=== PATIENT | female | born 1955 | race Caucasian/White ===

== ENCOUNTER 2024-10-09 06:10 | Emergency (ER) | payer MEDICARE, MEDICAID, SELFPAY ==
--- OUTSIDE RECORDS SUMMARY | 2023-01-02 07:30 | XMS_ITS | Continuity of Care Document ---
Author Organization [facility] Address [address] [place] [address] Phone Care Team Providers Care Neonatal Specialist Name Role Phone Xenia SHERWINSaloni Harris Unavailable Unavailable Allergies, Adverse Reactions, Alerts Substance Reaction Status Criticality teriparatide Active No Information codeine Difficulty breathing Active No Info rmation trimethoprim Skin irritation Active No Informati on sulfamethoxazole Skin irritation Active No Infor mation codeine Anaphylaxis Active No Information Medications Medication Instructions Dosage Effective Dates (start - stop) Status Comments Jardiance 25 mg tablet take 0.5 tablet b y oral route every day in the morning 12.5 MG - Active BromSite 0.075 % eye drops instill 1 drop by ophthalmic route 2 times every day into affected eye(s) ; start 1 day before cataract surgery; use for 14 days after surgery 1.00 drop - Active prednisolone acetate 1 % eye drops,suspension instill 1 drop by ophthalmic route 2 times every day into affected eye(s) 1.00 drop - Active Lubricant Eye Drops 0.5 % - Active Refresh Tears 0.5 % eye drops - Active zinc 50 mg tablet - Active clopidogrel bisulfate (bulk) 100 % powder - Active amlodipine 2.5 mg tablet take 1 tablet by oral route every day 2.5 MG - Active B12 5,000 mcg-100 mcg sublingual lozenge - Active Vitamin D2 50,000 unit capsule take 1 capsule by oral route every week - Active biotin 5 mg capsule - Active methocarbamol 500 mg tablet take 2 tablet by oral route 4 times every day 1000 MG - Active omeprazole 20 mg capsule,delayed release - Active metformin 500 mg tablet BID - Active aspirin 81 mg chewable tablet chew 1 tablet (81MG) by oral route every day 81 MG - Active Procedures Procedure Date Resin Composite 2s; Posterior 3 Oral Hygiene Instruction Resin Two Surfaces Anterior Resin Three Surfaces Anterior 3 Periodic Oral Eval Estab Patient 2022 Prophylaxis Adult Nutrit Couns For Control Of Freeborn Dis Nov Oral Hygiene Instruction Bitewings Four Films Qimitzsum-[id number] Additional Oct Oral Hygiene Instruction Limited Oral Eval Prophylaxis Adult Oral Hygiene Instruction Oral Hygiene Instruction Resin 4+ W/incis Angle Anterior 021 Resin One Surface; Anterior Bitewings Four Films Prophylaxis Adult Oral Hygiene Instruction Periodic Oral Eval Estab Patient 2020 PPE Bitewings-two Films Panoramic Film Prophylaxis Adult Periodic Oral Eval Estab Patient 2019 Oral Hygiene Instruction Prophylaxis Adult Oral Hygiene Instruction Nutrit Couns For Control Of Freeborn Dis Apr Oral Hygiene Instruction Resin Composite 1s; Posterior 9 Bitewings Four Films Prophylaxis Adult Periodic Oral Eval Estab Patient 2018 Topical Kathrin Of [place] 019 Oral Hygiene Instruction Nutrit Couns For Control Of Freeborn Dis Dec Oral Hygiene Instruction Resin 4+ W/incis Angle Anterior 018 Oral Hygiene Instruction Resin One Surface; Anterior Prophylaxis Adult Oral Hygiene Instruction Oral Hygiene Instruction Oral Hygiene Instruction Intraoral-periapical 1st Film 8 [id number] Additional Jul Resin Two Surfaces Anterior Resin Three Surfaces Anterior 8 Oral Hygiene Instruction Prophylaxis Adult Bitewings Four Films Periodic Oral Eval Estab Patient 2017 Post Op Visit Dental Extract; Erupted Th/exposted Rt 017 Limited Oral Eval No Charge Resin Composite 2s; Posterior 6 Resin 4+ W/incis Angle Anterior 016 Bitewings Four Films Periodic Oral Eval Estab Patient 2015 Prophylaxis Adult Oral Hygiene Instruction Prophylaxis Adult Oral Hygiene Instruction Amalgam 2 Surf Prim/perm Resin Composite 1s; Posterior 5 Resin 4+ W/incis Angle Anterior 015 Resin Two Surfaces Anterior Prophylaxis Adult Oral Hygiene Instruction Bitewings Four Films Prophylaxis Adult Oral Hygiene Instruction OFFICE/OUTPATIENT VISIT, EST Comp Oral Eval New/estab Patient 2012 ASSAY OF LEAD NEW OFFICE VISIT LEVEL 3 Advance Directives Directive Yes / No Effective Date File Name No Information Encounters Encounter Description Practice Location Reason(s) For Visit Diagnoses Date Provider Providers Copied on Encounter [facility], [address] [place] [address], [id number] , tel:[phone] Dental Clinic ovidio (chief complaint) Encounter for screening for dental disorders 3 Augustne COURTNEYS Saloni. . tel:[phone] [phone], [id number] , tel:[phone] Dental Clinic fill (chief complaint) Encounter for screening for dental disorders 3 Xenia DDS Saloni. . tel:[phone], [id number] , [place] tel: [phone] Dental Clinic PA (chief complaint) Encounter for screening for dental disorders 3 Xenia Christensen. [address], [place], [id number], [place]. tel:[phone] [facility], [address] [place], [place], [id number] , [place] tel: [phone] Dental Clinic Encounter for screening for dental disorders 3 Darien Saez. [address] [place], [address], [place]. tel:[phone] [facility], [address] [place] [address], [id number] , [place] tel: [phone] Dental Clinic prophy (chief complaint) Encounter for screening for dental disorders 2 David Hancock. [address] [place], [address], [place]. tel:[phone] [place] [address], [address] [place] [address], [id number] , [place] tel: [phone] Dental Clinic filling (chief complaint) Encounter for screening for dental disorders 1 David Hancock. [address] [place], [address], [place]. tel:[phone] [place] [address], [address] [place] [address], [id number] , [place] tel: [phone] Dental Clinic prophy (chief complaint) Encounter for screening for dental disorders 1 David Hancock. [address] [place], [address], [place]. tel:[phone] [facility], [address] [place], [place], [id number] , [place] tel: [phone] Dental Clinic Encounter for screening for dental disorders 0 Marta Contreras. [address] [place], [place], [id number], [place]. tel:[phone] [facility], [address] [place], [place], [id number] , [place] tel: [phone] Dental Clinic Encounter for screening for dental disorders 9 [facility]. [address] [place], [place], [id number], [place]. tel:[phone] [facility], [address] [place], [place], [address] , [place] tel: [phone] Dental Clinic filling (chief complaint) Encounter for screening for dental disorders 9 [facility]. [address] [place], [place], [id number], [place]. tel:[phone] [facility], [address] [place], [place], [id number] , [place] tel: [phone] Dental Clinic Encounter for screening for dental disorders 3 9 [facility]. [address] [place], [place], [id number], [place]. tel:[phone] [facility], [address] [place] [address], [id number] , [place] tel: [phone] Dental Clinic filling (chief complaint) Encounter for screening for dental disorders 8 Ryan queen DMD Violetahaen. [address] [place], [address], [place]. tel:[phone] [facility], [address] [place], [place], [id number] , [place] tel:[phone] Dental Clinic Encounter for screening for dental disorders 8 Ryan queen DMD Sushaen. [address] [place], [address], [place]. tel:[phone] [facility], [address] [place] [address], [id number] , [place] tel:[phone] Dental Clinic prophy (chief complaint) Encounter for screening for dental disorders 8 Nevaeh mann. [address] [place], [address], [place]. tel:[phone] [facility], [address] [place], [place], [id number] , [place] tel: [phone] Dental Clinic Encounter for screening for dental disorders 8 Faridagiovanimario bret DANG Violetaleo. [address] [place], [address], [place]. tel:[phone] [facility], [address] [place], [place], [id number] , [place] tel: [phone] Dental Clinic filling (chief complaint) Encounter for screening for dental disorders 8 Geraldo Munguia. [address], [place], [id number], [place]. tel:[phone] [facility], [address] [place], [place], [id number] , [place] tel: [phone] Dental Clinic Prophy (chief complaint) Encounter for screening for dental disorders 8 Bradlycastillo Munguia. [address], [place], [id number], [place]. tel:[phone] [facility], [address] [place], [place], [id number] , [place] tel: [phone] Dental Clinic dental limited (chief complaint) Encounter for screening for dental disorders 7 Ryland DANG Jinbo. [address] [place], [address], [place]. tel:[phone] [facility], [address] [place], [place], [id number] , [place] tel: [phone] Dental Clinic Encounter for screening for dental disorders 7 Neil Ford. [address] [place], [place], [id number], [place]. tel:[phone] [facility], [address] [place] [address], [id number] , [place] tel: [phone] Dental Clinic Encounter for screening for dental disorders 7 Ryland DANG Jinbo. [address] [place] [address], [address], [place]. tel:[phone] [facility], [address] [facility] [place] [place] [id number] , [place] tel: [phone] Dental Clinic EXT (chief complaint) Encounter for screening for dental disorders 6 [facility]. [address] [facility], [id number], [place]. tel:[phone] [facility], [address] [facility], [id number] , [place] tel: [phone] Dental Clinic Encounter for screening for dental disorders 6 [facility]. [address] [facility], [id number], [place]. tel:[phone] [facility], [address] [facility], [id number] , [place] tel: [phone] Dental Clinic Adult Prophy (chief complaint) Encounter for screening for dental disorders [facility]. [address] [facility] [place], [id number], [place]. tel:[phone] [facility], [address] [facility] [place], [id number] , [place] tel: [phone] Dental Clinic Dental examination [facility]. [address] [facility] [id number], [place]. tel:[phone] [facility], [address] [facility] [place], [address] , [place] tel: [phone] Dental Clinic Dental examination 0 5 [facility]. [address] [facility] [place], [id number], [place]. tel:[phone] [facility], [address] [facility] [place], [address] , [place] tel:[phone] Dental Clinic Dental examination 0 5 [facility]. [address] [facility], [id number], [place]. tel:[phone] [facility], [address] [place], [place], [address] , [place] tel: [phone] Dental Clinic Dental examination [facility]. [address] [facility] [place], [id number], [place]. tel:[phone] [facility], [address] [place], [place], [id number] , [place] tel: [phone] Dental Clinic Dental examination [facility]. [address] [place], [place], [id number], [place]. tel:[phone] [facility], [address] [place] [address], [id number] , [place] tel: [phone] Dental Clinic Dental examination [facility]. [address] [place], [place], [id number], [place]. tel:[phone] [facility], [address] [place] [address], [id number] , [place] tel: [phone] [facility] No Information [facility]. [address] [place], [place], [id number], [place]. tel:[phone] OFFICE/OUTPA TIENT VISIT, EST [facility], [address] [place], [place], [id number] , [place] tel: [phone] [facility] hypertension (chief complaint) Unspecified essential hypertension 3 Keshawn Shrestha. [address] [place], [place], [id number], [place]. [facility], [address] [place], [place], [address] , [place] tel: [phone] Dental Clinic Dental examination 3 Geraldo Munguia. [address], [place], [id number], [place]. tel:[phone] [facility], [address] [place] [address], [id number] , [place] tel: [phone] Dental Clinic Dental examination 3 Bradlycastillo Ezra. [address], [place], [id number], [place]. tel:[phone] [facility], [address] [place], [place], [id number] , tel: [phone] [facility] No Information 0 Visci DO Bolivar. [address] [place], [place], [address], [place]. tel:[phone] NEW OFFICE VISIT LEVEL 3 [facility], [address] [place], [place], [address] , [place] tel: [phone] [facility] leg pain (chief complaint)Nee ds ENT consult (chief complaint) Myalgia and myositis, unspecifiedPai n in limbOther malaise and fatigueUnspeci fied hearing loss 0 Adolfo Tatum. [address] [place] [address], [address]. tel:[phone] Family History Family Member Type Diagnosis Age At Onset Problem (finding) Family history of seizu re disorder Mother Problem (finding) diabetes melli tus in first degree relative Problem (finding) Family history of Eczem a Problem (finding) Family history of depre ssion Mother Problem (finding) malignant neoplasm of l olga Problem (finding) Family history of asthm a Problem (finding) Family history of Diabe luis a mellitus Problem (finding) Family history of raise d blood lipids Problem (finding) Family history of Renal disease Problem (finding) Family history of hyper tension Problem (finding) Family history of migra ine Problem (finding) Family history of alzhe hanane's disease Problem (finding) Family history of Heari ng impairment Problem (finding) Family history of osteo arthritis Problem (finding) Family history of Cance r Problem (finding) Family history of Irritable bowel disease Payers Payer name Insurance type Covered republican ID Ivet palmer(s) D [facility] ([place] [employer]) CI [id number] D Medicaid Crossover [id number] Social History Type Description Quantity Date Captured Comments Alcohol Use Details No Caffeine Use Details coffee sips per day Tobacco Use Status Never smoked tobacco 2022 Smoking Status Never smoker Sex Female Sexual Orientation Straight or heterosexual Gender Identity Female Vital Signs Date / Time: Height Weight BMI Pulse Rate Blood Pressure Temperature Respiratory Rate Body Surface Area Head Circumference Head Circ. Percentile Wt./Victor Manuel. Percentile BMI percentile Pulse Ox Inhaled Ox 6:19 PM 82 /min 119/78 mm[Hg] 98.10 F Chief Complaint And Reason For Visit From encounter dated '01/02/2023 11:30'. ovidio (chief complaint). Description: ovidio Reason For Referral Reason For Referral No Information Plan Of Treatment Date Type Action Status Goal FIT-DNA. Due on due Goal Lipid panel. Due on due Goal CT-Colonography. Due on due Goal FOBT. Due on due Goal Depression screening. Due on due Goal Tdap Vaccine. Due on 2022 due Goal PRAPARE ASSESSMENT. Due on N due Goal Hepatitis C screening. Due o n due Goal Colonoscopy. Due on due Goal Influenza vaccine. Due on No due Goal Zoster vaccine (). Due on due Goal Unhealthy drug use screening . Due on due Goal Mammogram. Due on due Goal Tdap. Due on due Goal FIT. Due on due Goal Urinalysis. Due on due Goal ECG. Due on due Goal Diabetes screening. Due on N due Goal Influenza vaccine. Due on Oc due Goal FIT. Due on due Goal Hepatitis C screening. Due o n due Goal Zoster vaccine (1st). Due on due Goal CT-Colonography. Due on due Goal Lipid panel. Due on due Goal Hep A. Due on du e Goal Tdap Vaccine. Due on 2022 due Goal Tdap. Due on due Goal FOBT. Due on due Goal Colonoscopy. Due on due Goal PRAPARE ASSESSMENT. Due on O due Goal Mammogram. Due on due Goal Depression screening. Due on due Goal FIT-DNA. Due on due Goal Unhealthy drug use screening . Due on due Goal Urinalysis. Due on due Goal Diabetes screening. Due on O due Goal ECG. Due on due Goal Hep A. Due on du e Goal PRAPARE ASSESSMENT. Due on O ct due Goal CT-Colonography. Due on due Goal Influenza vaccine. Due on Oc due Goal Tdap Vaccine. Due on 2022 due Goal Unhealthy drug use screening . Due on due Goal Lipid panel. Due on due Goal FIT-DNA. Due on due Goal Tdap. Due on due Goal Colonoscopy. Due on due Goal FIT. Due on due Goal Depression screening. Due on due Goal Hepatitis C screening. Due o n due Goal Mammogram. Due on due Goal Zoster vaccine (). Due on due Goal FOBT. Due on due Goal Diabetes screening. Due on O due Goal ECG. Due on due Goal Urinalysis. Due on due Goal Diabetes screening. Due on S due Goal Urinalysis. Due on due Goal ECG. Due on due Goal Lipid panel. Due on due Goal Influenza vaccine. Due on Se due Goal FOBT. Due on due Goal Depression screening. Due on due Goal PRAPARE ASSESSMENT. Due on S due Goal Tdap Vaccine. Due on 2022 due Goal Colonoscopy. Due on due Goal Zoster vaccine (). Due on due Goal Mammogram. Due on due Goal Tdap. Due on due Goal Diabetes screening. Due on F due Goal ECG. Due on due Goal Urinalysis. Due on due Goal Diabetes screening. Due on O due Goal Urinalysis. Due on due Goal ECG. Due on due Goal Urinalysis. Due on due Goal ECG. Due on due Goal Diabetes screening. Due on A due Goal Urinalysis. Due on due Goal ECG. Due on due Goal Diabetes screening. Due on A due Goal Diabetes screening. Due on D due Goal ECG. Due on due Goal Urinalysis. Due on due Goal Diabetes screening. Due on due Goal ECG. Due on due Goal Urinalysis. Due on due Goal Diabetes screening. Due on due Goal ECG. Due on due Goal Urinalysis. Due on due Goal Diabetes screening. Due on N due Goal ECG. Due on due Goal Urinalysis. Due on 18 due Goal Diabetes screening. Due on S due Goal ECG. Due on due Goal Urinalysis. Due on due Goal Urinalysis. Due on due Goal ECG. Due on due Goal Diabetes screening. Due on S due Goal Urinalysis. Due on due Goal ECG. Due on due Goal Diabetes screening. Due on due Goal ECG. Due on due Goal Urinalysis. Due on due Goal Diabetes screening. Due on A due Goal Urinalysis. Due on due Goal ECG. Due on due Goal Diabetes screening. Due on M due Referral Referred To: Elio Marti DO [id number] [facility] [address] [place], [phone] Ordered: Referral: Elio Matri DO. ENT. Evaluate and treat. ordered History Of Present Illness Encounter Date Complaint History Of Prese nt Illness ovidio ovidio fill PA PA prophy filling filling prophy prophy filling continue with tr eatment filling continue with tr eatment prophy filling Prophy Prophy dental limited EXT Adult Prophy Functional Status Date Functional Assessmen t No Information Instructions Date Instruction Additional Infor mation Order consults Prescribe medications Order labs/studies Go to ER if symptoms persist or worsen Walking program recommended Assessments Type Assessment Date No Information Patient Care Teams Name Effective Dates (start - stop) Status Members No Information
--- OUTSIDE RECORDS SUMMARY | 2023-05-23 10:45 | XMS_ITS ---
Author Organization [facility] Address [address] [place] [address] Care Team Providers Care Post Framer Name Role Phone Gerard Brasher Primary Care Provider [phone] Antonella Ye Unavailable REASON FOR VISIT 3 month f/u Medications Medication SIG (Take, Route, Frequency, Duration) Notes Start Date End Date Status Ferrous Sulfate 325 (65 Fe) MG TAKE 1 TABLET BY MOUTH EVERY DAY; Duration: 30 Ran out of meds Not-Taking Meclizine HCl 25 MG TAKE 1 TABLET NEEDED ORALLY ONCE A DAY; Duration: 30 Active Jardiance 25 MG TAKE 1 TABLET BY MOUTH EVERY DAY FOR 90 DAYS; Duration: 90 Active Omeprazole 40 MG TAKE 1 CAPSULE BY MOUTH EVERY DAY 30 MINUTES BEFORE MORNING MEAL FOR 30 DAYS; Duration: 90 Active amLODIPine Besylate 5 MG 1 tablet Orally Once a day; Duration: 90 days Active Zinc Not-Taking Vitamin C 500 MG as directed Orally Not-Taking Magnesium Citrate 100 MG as directed Orally Not-Taking Folbic RF 1.13-25-2 MG 1 tablet Orally Once a day; Duration: 30 day(s) 11/08/2018 Not-Taking Turmeric /16 in tea every morning Not-Taking Fluticasone Propionate 50 MCG/ACT SPRAY 1 SPRAY IN EACH NOSTRIL ONCE A DAY; Duration: 90 Active Valsartan 40 MG 1 tablet Orally Twice a day; Duration: 90 day(s) Active Famotidine 20 MG TAKE 1 TABLET BY MOUTH NEEDED EVERYDAY AT BEDTIME; Duration: 90 Active metFORMIN HCl 1000 MG TAKE 1 TABLET BY MOUTH WITH A MEAL TWICE A DAY FOR 30 DAYS; Duration: 90 days Active Metoprolol Succinate ER 25 MG TAKE 1 TABLET BY MOUTH EVERY DAY; Duration: 90 Active Chlorthalidone 25 MG TAKE 1 TABLET IN THE MORNING WITH FOOD ORALLY ONCE A DAY 30 DAYS; Duration: 90 Active Aspirin 81 MG 1 tablet Orally Once a day; Duration: 90 days Active Lidocaine 5 % 1 patch to intact skin remove after 12 hours Externally Once a day; Duration: 30 days Active Zofran ODT 4 MG 1 tablet on the tongue and allow to dissolve Orally every 8 hrs PRN nausea; Duration: 30 day(s) 12/01/2013 Active Flonase 50 MCG/ACT 1 spray in each nostril Nasally Once a day; Duration: 30 day(s) 03/06/2017 Active Vitamin B Complex - as directed Orally once a day; Duration: 30 days Active Rosuvastatin Calcium 20 MG TAKE 1 TABLET BY MOUTH EVERY DAY FOR 90 DAYS; Duration: 90 Active Alcohol Preps 70 % TID Externally use TID for glucose checks; Duration: 30 Active FreeStyle Lite Test USE DIRECTED 3 TIMES A DAY; Duration: 30 Active BD Pen Needle Mini U/F 31G X 5 MM USE WITH INSULIN; Duration: 30 Active Brooklyn 3 1200 MG 1 capsule Orally Once a day; Duration: 30 day(s) 1000 Active Lancets as directed TID; Duration: 30 days 06/26/2013 Active Sphygmomanometer - as directed once a day; Duration: [address] 1 drop of blood externally TID 03/06/2017 Active Biotin 38834 MCG 1 tablet Orally twice a day (bid) Active Vitamin A 2400 MCG (8000 UT) 2 capsules with food or milk Orally Once a day Active Vitamin B12 100 MCG as directed Orally 2500 mcg per day Active Vitamin K2-Vitamin D3 Active Vitamin E 180 MG (400 UNIT) 1 capsule Orally Once a day Active Encounters Encounter Location Date Provider Diagnosis [facility] [address] [place] [address] 05/23/2023 Ye Berman Plan Of Treatment Next Appt Details Provider Name:Gerard milan, 12/22/2024 10:00:00 AM, [address] [place], [address], Progress Notes * CHRISTINA BERGER GDOB: 5 (69 yo F)Acc No.[id number]:05/23/2023 Progress Notes Patient: CHRISTINA HERMAN Appointment Provider: Jessica Hernandes DO :1955 A ge:68 Y S ex:Female Date:05/23/2023 Address:[place], [id number] Pcp:Gerard Brasher Subjective: * Chief Complaints: * 1 . 3 month f/u. * Medical History: * Medications: T aking Vitamin E 180 MG (400 UNIT) Capsule 1 capsule Orally Once a day , Taking Vitamin K2-Vitamin D3 , Taking Vitamin B12 100 MCG Tablet as directed Orally , Notes to Pharmacist: 2500 mcg per day, Taking Vitamin A 2400 MCG (8000 UT) Capsule 2 capsules with food or milk Orally Once a day , Taking Biotin 59448 MCG Tablet 1 tablet Orally twice a day (bid) , Taking Glucometer place 1 drop of blood externally TID , Taking Lancets as directed TID , Taking Brooklyn 3 1200 MG Capsule 1 capsule Orally Once a day , Notes to Pharmacist: 1000, Taking Sphygmomanometer - Miscellaneous as directed once a day , Taking Vitamin B Complex - Tablet as directed Orally once a day , Taking BD Pen Needle Mini U/F 31G X 5 MM Miscellaneous USE WITH INSULIN , Taking FreeStyle Lite Test Strip USE DIRECTED 3 TIMES A DAY , Taking Alcohol Preps 70 % Miscellaneous TID Externally use TID for glucose checks , Taking Rosuvastatin Calcium 20 MG Tablet TAKE 1 TABLET BY MOUTH EVERY DAY FOR 90 DAYS , Taking Lidocaine 5 % Patch 1 patch to intact skin remove after 12 hours Externally Once a day , Taking Flonase 50 MCG/ACT Suspension 1 spray in each nostril Nasally Once a day , Taking Zofran ODT 4 MG Tablet Dispersible 1 tablet on the tongue and allow to dissolve Orally every 8 hrs PRN nausea , Taking Aspirin 81 MG Tablet Delayed Release 1 tablet Orally Once a day , Taking Chlorthalidone 25 MG Tablet TAKE 1 TABLET IN THE MORNING WITH FOOD ORALLY ONCE A DAY 30 DAYS , Taking Valsartan 40 MG Tablet 1 tablet Orally Twice a day , Taking Fluticasone Propionate 50 MCG/ACT Suspension SPRAY 1 SPRAY IN EACH NOSTRIL ONCE A DAY , Taking Famotidine 20 MG Tablet TAKE 1 TABLET BY MOUTH NEEDED EVERYDAY AT BEDTIME , Taking Metoprolol Succinate ER 25 MG Tablet Extended Release 24 Hour TAKE 1 TABLET BY MOUTH EVERY DAY , Taking metFORMIN HCl 1000 MG Tablet TAKE 1 TABLET BY MOUTH WITH A MEAL TWICE A DAY FOR 30 DAYS , Taking Meclizine HCl 25 MG Tablet TAKE 1 TABLET NEEDED ORALLY ONCE A DAY , Taking Omeprazole 40 MG Capsule Delayed Release TAKE 1 CAPSULE BY MOUTH EVERY DAY 30 MINUTES BEFORE MORNING MEAL FOR 30 DAYS , Taking Jardiance 25 MG Tablet TAKE 1 TABLET BY MOUTH EVERY DAY FOR 90 DAYS , Taking amLODIPine Besylate 5 MG Tablet 1 tablet Orally Once a day , Not-Taking/PRN Magnesium Citrate 100 MG Tablet as directed Orally , Not-Taking/PRN Vitamin C 500 MG Capsule as directed Orally , Not-Taking/PRN Turmeric , Notes to Pharmacist: 02/20 in tea every morning, Not-Taking/PRN Folbic RF 1.13-25-2 MG Tablet 1 tablet Orally Once a day , Not-Taking/PRN Zinc , Not-Taking/PRN Ferrous Sulfate 325 (65 Fe) MG Tablet TAKE 1 TABLET BY MOUTH EVERY DAY , Notes to Pharmacist: Ran out of meds Objective: * Vitals: Assessment: Plan: * Treatment: * Images: * Electronic signature of Julio Berman , on 10/09/2024 at 06:19 AM EDT Sign off status: Pending * Appointment Provider: Jessica Hernandes DO Date: 05/23/2023 Generated for Printing/Faxing/eTransmitting on: 10/09/2024 06:19 AM EDT
--- OUTSIDE RECORDS SUMMARY | 2024-07-11 04:15 | XMS_ITS ---
Author Organization [facility] Address [address] [place] [address] Care Team Providers Care Watch Electrician Name Role Phone Gerard Brasher Primary Care Provider Ben Kohli [phone] REASON FOR VISIT broken collar bone Encounters Encounter Location Date Provider Diagnosis [facility] [address] [place] [address] 07/11/2024 Ben Kohli Plan Of Treatment Next Appt Details Provider Name:Gerard milan, 12/22/2024 10:00:00 AM, [address] [place], [address], Progress Notes * CHRISTINA BERGER GDOB: (69 yo F)Acc No.[id number]:07/11/2024 PROGRESS NOTES Patient: CHRISTINA HERMAN Appointment Provider: Philly Kohli MD :1955 A ge:69 Y S ex:Female Date:07/11/2024 [facility] [id number] Pcp:Gerard Brasher Subjective: * Chief Complaints: * 1 . Broken collar bone. * Medical History: Objective: * Vitals: Assessment: Plan: * Treatment: * Images: * Electronic signature of Ben Kohli MD on 10/09/2024 at 06:18 AM EDT Sign off status: Pending * Appointment Provider: Philly Kohli MD Date: 0 07/11/2024 Generated for Ana farah/Tello/Tobyitting on: 0 10/09/2024 06:18 AM EDT
[2024-10-09 06:13] VITALS: BP 139/79; PULSE 102; TEMP 37; O2SAT 98; BMI 20.4
--- OUTSIDE RECORDS SUMMARY | 2024-10-09 06:19 | XMS_ITS | Clinical Summary ---
Author Organization [facility] Address [address] [place] [address] Care Team Providers Care Senior Oracle Pl Sql Developer Name Role Phone Unavailable Primary Care Provider Unavailabl e Allergies Active Allergy Reactions Criticality Noted Date Comments Alendronate 04/09/2023 Other Reaction(s): muscle aches/ stiffness Alogliptin Shortness of breath High 04/09/2023 Codeine Anaphylaxis High 04/09/2023 Lisinopril 04/09/2023 Other Reaction(s): cough Sulfamethoxazole Rash Low 04/09/2023 Medications amLODIPine (Norvasc) 5 MG tablet TAKE 1 TABLET BY MOUTH EVERY DAY FOR 90 DAYS Active Ascorbic Acid (Vitamin C) 500 MG capsule as directed Orally Active aspirin 81 MG EC tablet 1 (one) time each day at the same time Active atorvastatin (Lipitor) 20 MG tablet Take 20 mg by mouth in the morning. Active B Complex Vitamins (vitamin B complex) tablet 1 (one) time each day at the same time Active biotin 80637 MCG tablet 1 tablet Orally twice a day (bid) Active chlorthalidone (Hygroton) 25 MG tablet TAKE 1 TABLET IN THE MORNING WITH FOOD ORALLY ONCE A DAY Active clopidogrel (Plavix) 75 MG tablet Take 75 mg by mouth in the morning. Active Cyanocobalamin 5000 MCG sublingual tablet as directed Sublingual Active Docusate Sodium (DSS) 250 MG capsule 1 (one) time each day at the same time Active Jardiance 25 MG TAKE 1 TABLET BY MOUTH EVERY DAY FOR 90 DAYS Active famotidine (Pepcid) 20 MG tablet TAKE 1 TABLET BY MOUTH NEEDED EVERYDAY AT BEDTIME for 90 Active ferrous sulfate 325 (65 Fe) MG tablet TAKE 1 TABLET BY MOUTH EVERY DAY for 30 Active fluticasone (Flonase) 50 MCG/ACT nasal spray SPRAY 1 SPRAY IN EACH NOSTRIL ONCE A DAY for 90 Active lisinopril 10 MG tablet Take 10 mg by mouth in the morning. Active Magnesium Citrate 100 MG tablet as directed Orally Active meclizine (Antivert) 25 MG tablet Take 25 mg by mouth Daily as needed Active metFORMIN (Glucophage) 1000 MG tablet TAKE 1 TABLET BY MOUTH WITH A MEAL TWICE A DAY FOR 30 DAYS for 90 days Active metoprolol succinate XL (Toprol-XL) 25 MG 24 hr tablet TAKE 1 TABLET BY MOUTH EVERY DAY for 90 Active omega-3 (fish oil) 1200 MG capsule 1 capsule 1 (one) time each day at the same time Active omeprazole (PriLOSEC) [address] capsule TAKE 1 CAPSULE BY MOUTH EVERY DAY 30 MINUTES BEFORE MORNING MEAL FOR 30 DAYS Active rosuvastatin (Crestor) 20 MG tablet TAKE 1 TABLET BY MOUTH EVERY DAY FOR 90 DAYS for 90 Active valsartan (Diovan) 40 MG tablet every 12 (twelve) hours Active Active Problems Problem Noted Date Diagnosed Date Atrophy of vagina 04/09/2023 Back pain 09/04/2013 Resolved Problems Problem Noted Date Diagnosed Date Resolved Date Conductive hearing loss, uni lateral, right ear with restricted hearing on the contralateral side 04/09/2023 04/09/2023 Cyclical vomiting syndrome 04/09/2023 0 04/09/2023 Hearing loss 04/09/2023 04/09/2023 Incontinence of feces 04/09/20232023 Other secondary kyphosis, cervical region 04/09/2023 04/09/2023 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 04/09/2023 Spondylolisthesis, cervical region 04/09/2023 04/09/2023 Diabetes mellitus without complication 04/09/2023 04/09/2023 Type 2 diabetes mellitus wit h hypoglycemia without coma, without long-term current use of insulin 04/09/2023 04/09/2023 Verruca plantaris 04/09/2023 04/09/2023 Cerebral infarction 09/04/2013 04/09/19 24 Constipation 09/04/2013 04/09/2023 Lower urinary tract infectious disease 09/04/2013 04/09/2023 Family History Medical History Relation Name Comments Hypertension Father Cancer Mother Diabetes Mother Hypertension Mother Lung cancer Mother Murdered Sister Relation Name Status Comments Daughter 1 Alive Daughter 2 Daughter 3 Father Mother Sister Social History Tobacco Use Types Packs/Day Years Used Date Smoking Tobacco: Never Smokeless Tobacco: Never Tobacco Cessation:Counseling Given: Not Answered Alcohol Use Standard Drinks/Week Comments Not Currently 0 (1 standard drink = 0.6 oz pur e alcohol) Comments Unknown Sex and Gender Information Value Date Recorded Sex Assigned at Not on file Legal Sex Female 7:15 PM EDT Gender Identity Not on file Sexual Orientation Not on file Last Filed Vital Signs Vital Sign Reading Time Taken Comments Blood Pressure 140/80 04/26/2022 12:00 PM EDT Pulse 77 10/18/2021 12:16 PM EDT Temperature - - Respiratory Rate 18 10/18/2021 12:16 PM EDT Oxygen Saturation 99% 10/18/2021 12:16 PM EDT Inhaled Oxygen Concentration - - Weight 49.9 kg (110 lb) 04/09/2023 11:04 AM EST Height 161.3 cm (5' 3.5 ) 04/09/2023 11:04 AM ES T Body Mass Index 19.18 04/09/2023 11:04 AM EST Plan of Treatment Not on file Insurance [employer] [place]ICAID [place]
--- OUTSIDE RECORDS SUMMARY | 2024-10-09 06:19 | XMS_ITS | Clinical Summary ---
Author Organization [facility] Address [address] [place] [address] Care Team Providers Care Awning Craftsperson Name Role Phone Osmel Tapia DO Primary Care Provider Social History Tobacco Use Types Packs/Day Years Used Date Smoking Tobacco: Never Assessed Comments Unknown Sex and Gender Information Value Date Recorded Sex Assigned at Not on file Legal Sex Female 11:10 PM EST Gender Identity Not on file Sexual Orientation Not on file Plan of Treatment Health Maintenance Due Date Last Done Comments MMR Vaccine (1 of 1 - Standa rd series) 05[birth year]18/1956 DTaP/Tdap/Td Vaccine (1 - Tdap) 1961 Varicella Vaccine (1 of 2 - 13+ 2-dose series) 05/18/1967 Mammogram 1994 Pneumococcal Vaccine: 50+ Ye ars (1 of 1 - PCV) 2004 COVID-19 Vaccine ( - 2023-2 5 season) 2023 Influenza Vaccine (#1) 2024 RSV Immunization (1 - 1-dose 75+ series) 2029 HIB Vaccine Aged Out No longer eligi ble based on patient's age to complete this topic HPV Vaccine Aged Out No longer eligi ble based on patient's age to complete this topic Hepatitis A Vaccine Aged Out No longe r eligible based on patient's age to complete this topic Hepatitis B Vaccine Aged Out No longe r eligible based on patient's age to complete this topic IPV Vaccine Aged Out No longer eligi ble based on patient's age to complete this topic Meningococcal ACWY Vaccine Aged Out N o longer eligible based on patient's age to complete this topic Meningococcal B Vaccine Aged Out No l onger eligible based on patient's age to complete this topic RSV, Nirsevimab Immunization Aged Out No longer eligible based on patient's age to complete this topic Rotavirus Vaccine Aged Out No longer eligible based on patient's age to complete this topic Insurance [employer] Care Teams Awning Craftsperson Relationship Specialty Start Date End Date Osmel Tapia DO [address] [place] [address] PCP - General Obstetrics/Gynecology 12/03/09
--- OUTSIDE RECORDS SUMMARY | 2024-10-09 06:20 | XMS_ITS | Clinical Summary ---
Author Organization [facility] Address [address] [place] [address] Care Team Providers Care Cement Tester Assistant Name Role Phone Meron Murray CNP Primary Care Provider Eda Cuevas MD Unavailable [phone] Allergies No known active allergies Medications ASPIRIN (ASPIR-81 ORAL) Take 1 tablet by mouth once daily. Active ciprofloxacin (CIPRO) 500 mg tablet Take 500 mg by mouth twice daily. Active clopidogrel 75 mg tablet Take 75 mg by mouth once daily. Active Insulin Lisp and Lisp Prot, Hum, (HUMALOG MIX 75-25 KWIKPEN) 100 unit/mL (75-25) inpnIndications:d iabetes mellitus Inject 1 Units subcutaneously as needed. Indications: DIABETES MELLITUS Active insulin 75/25 lispro protamine/lispro units/mL (HUMALOG MIX 75-25) 100 units/mL susp Inject 15 Units subcutaneously twice daily with meals. Active HYDROcodone-aceta minophen 5-325 mg per tablet Take 1 tablet by mouth every 6 hours as needed. Active lactulose 20 gram/30 mL solution Take 20 g by mouth twice daily as needed. Active atorvastatin (LIPITOR) 20 mg tabletIndications :atherosclerotic cardiovascular disease Take 20 mg by mouth once daily. Indications: ARTERIOSCLEROTIC VASCULAR DISEASE Active lisinopril 10 mg tablet Take 10 mg by mouth once daily. Active metFORMIN 500 mg tablet Take 500 mg by mouth twice daily with meals. Active omeprazole 20 mg capsule Take 20 mg by mouth once daily. Active polyethylene glycol 3350 (MIRALAX) 17 gram packet Take 17 g by mouth once daily. Active SENNOSIDES ORAL Take 2 tablets by mouth as needed. Active ondansetron orally disintegrating (ZOFRAN ODT) 4 mg disintegrating tabletIndications :acute gastroenteritis-r elated vomiting in pediatrics Take 4 mg by mouth every 8 hours as needed. Indications: ACUTE GASTROENTERITIS-REL ATED VOMITING IN PEDIATRICS Active FREESTYLE LITE STRIPS test strip 12/12/19 14 Active cyproheptadine (PERIACTIN) 4 mg tablet 12/09/19 14 Active FOLTANX 3-35-2 mg tab or Capsule 12/11/19 14 Active Active Problems Problem Noted Date Diagnosed Date Back pain 09/04/2013 Constipation 09/04/2013 CVA (cerebral infarction) 09/04/2013 UTI (lower urinary tract infection) 09/04/2013 Social History Tobacco Use Types Packs/Day Years Used Date Smoking Tobacco: Never Smokeless Tobacco: Never Alcohol Use Standard Drinks/Week Comments Yes 0 (1 standard drink = 0.6 oz pur e alcohol) once or twice a yearly Comments No Sex and Gender Information Value Date Recorded Sex Assigned at Not on file Legal Sex Female 6:12 PM EDT Gender Identity Not on file Sexual Orientation Not on file Last Filed Vital Signs Vital Sign Reading Time Taken Comments Blood Pressure - - Pulse - - Temperature - - Respiratory Rate 16 09/04/2013 1:11 PM EDT Oxygen Saturation - - Inhaled Oxygen Concentration - - Weight 55.6 kg (122 lb 8 oz) 09/04/2013 1:11 PM EDT Height 162.6 cm (5' 4 ) 09/04/2013 1:11 PM EDT Body Mass Index 21.03 09/04/2013 1:11 PM EDT Plan of Treatment Health Maintenance Due Date Last Done Comments Anxiety Screening 1972 Depression Screening 1972 Hepatitis C Screening 1972 DTaP,Tdap,Td Vaccine (1 - Tdap) [address] Colonography 05/18/1999 Cologuard (FIT-DNA) 05/18/1999 Colonoscopy 05/18/1999 Colorectal Cancer Screening 05/18/1999 Diabetes Screening 05/18/1999 Fecal Occult Blood 05/18/1999 Lipid Screening 05/18/1999 Sigmoidoscopy 05/18/1999 Pneumococcal Vaccine: 50+ (1 of 1 - PCV) 2004 Shingrix Vaccine (1 of 2) 2004 Bone Density Screening 05/18/2019 Advance Directive Discussion 02/06/2024 Influenza Vaccine (#1) 2024 RSV Vaccine (1 - 1-dose 75+ series) 2029 Insurance [facility] MEDICAID Care Teams Cement Tester Assistant Relationship Specialty Start Date End Date Meron Murray CNP PCP - General Family Medicine 12/19/14 Eda Cuevas MD Referring Pediatrics 03/13/19
--- OUTSIDE RECORDS SUMMARY | 2024-10-09 06:20 | XMS_ITS | Patient Health Record ---
Author Organization [employer] [facility] Address [address] [place] [address] Care Team Providers Care Naturopath Name Role Phone Gerard Brasher Primary Care Provider Kamilla Ben Unavailable [phone] Allergies Allergen (clinical drug ingredient) Drug/Non Drug Allergy documented on EMR Reaction Allergy Type Onset Date Status MRI (uncoded) metal in head Allergy Ac tive codeine Codeine Sulfate anaphylaxis Drug Allergy Active lisinopril Lisinopril cough Drug Allergy Activ e Sulfamethoxazole rash Drug Allergy Active alogliptin Alogliptin shortness of breath Drug Allergy Active Results Component Value Reference Range Notes Hemoglobin A1c Reviewed date:06/20/2024 10:58:22 AM Interpretation:6.4 Performing Lab: Notes/Report: 6.4 Hemoglobin A1c 6.4 5 - 7.9 % Reason For Referral No Information Medications Medication SIG (Take, Route, Frequency, Duration) Notes Start Date End Date Status [place] 3 1200 MG 1 capsule Orally Once a day; Duration: 90 days 1000 Active Vitamin B Complex - 1 tablet Orally once a day; Duration: 90 days Active Vitamin A 2400 MCG (8000 UT) 2 capsules with food or milk Orally Once a day Active Metoprolol Succinate ER 25 MG 1 tablet Orally Once a day; Duration: 90 days Active Biotin 65878 MCG 1 tablet Orally twice a day (bid) Active Valsartan 40 MG 1 tablet Orally every 12 hours; Duration: 90 days Active Vitamin K2-Vitamin D3 Active Aspirin 81 MG 1 tablet Orally Once a day; Duration: 90 days Active Vitamin B12 100 MCG as directed Orally 2500 mcg per day Active Famotidine 20 MG 1 tablet at bedtime as needed Orally Once a day; Duration: 90 days Active Lidocaine 5 % 1 patch to intact skin remove after 12 hours Externally Once a day; Duration: 30 days Active Meclizine HCl 25 MG 1 tablet as needed Orally every 12 hrs; Duration: 30 days Active Vitamin E 180 MG (400 UNIT) 1 capsule Orally Once a day Active Fluticasone Propionate 50 MCG/ACT 1 spray in each nostril Nasally Twice a day; Duration: 90 days Active metFORMIN HCl 1000 MG 1 tablet with a meal Orally twice a day; Duration: 90 days Active amLODIPine Besylate 5 MG 1 tablet Orally Once a day; Duration: 90 days Active Lidocaine 5 % 1 patch to intact skin remove after 12 hours Externally Once a day; Duration: 30 days Active Vitamin C 500 MG as directed Orally Not-Taking Sphygmomanometer - as directed once a day; Duration: 30 days Active Turmeric 02/20 in tea every morning Not-Taking Magnesium Citrate 100 MG as directed Orally Not-Taking Jardiance 25 MG TAKE 1 TABLET BY MOUTH EVERY DAY; Duration: 90 Active Omeprazole 40 MG TAKE 1 CAPSULE BY MOUTH EVERY DAY 30 MINUTES BEFORE MORNING MEAL; Duration: 90 Active Zofran ODT 4 MG 1 tablet on the tongue and allow to dissolve Orally every 8 hrs PRN nausea; Duration: 30 day(s) 12/01/2013 Active Alcohol Preps 70 % TID Externally use TID for glucose checks; Duration: 30 Active Ferrous Sulfate 325 (65 Fe) MG TAKE 1 TABLET BY MOUTH EVERY DAY; Duration: 30 Ran out of meds Not-Taking Flonase 50 MCG/ACT 1 spray in each nostril Nasally Once a day; Duration: 30 day(s) 03/06/2017 Active BD Pen Needle Mini U/F 31G X 5 MM USE WITH INSULIN; Duration: 30 Active Folbic RF 1.13-25-2 MG 1 tablet Orally Once a day; Duration: 30 day(s) 11/08/2018 Not-Taking FreeStyle Lite Test USE DIRECTED 3 TIMES A DAY; Duration: 30 Active Zinc Not-Taking Glucometer place 1 drop of blood externally TID 03/06/2017 Active Lancets as directed TID; Duration: 30 days 06/26/2013 Active Immunizations Vaccine Route Administration Date Status Comme nts zzz Unknown 02/21/2016 Refused Social History Tobacco Use: Social History Observation Description Date Details (start date - stop date) Never Smoker NA - NA Tobacco Screen: Question Answer Notes Are you a: never smoker Alcohol Screening: Question Answer Notes Did you have a drink containing alcohol in the p ast year? No Interpretation Negative Depression Screening (PHQ-9): Question Answer Notes Little interest or pleasure in doing things Not at all Feeling down, depressed, or hopeless Not at all Trouble falling or staying asleep, or sleeping t oo much Not at all Feeling tired or having little energy Not at all Poor appetite or overeating Not at all Feeling bad about yourself-o r that you are a failure or have let yourself or your family down Not at all Trouble concentrating on thi ngs, such as reading the newspaper or watching television Not at all Moving or speaking so slowly that other people could have noticed. Or the opposite being so fidgety or restless that you have been moving around a lot more than usual Not at all Thoughts that you would be b daria off , or of hurting yourself in some way Not at all Total Score 0 Section Notes: Not a smoker. Doesn't drink. Not a smoker. Doesn't drink. No illicit drugs Not a smoker. Doesn't drink. No illicit drugs Not a smoker. Doesn't drink. No illicit drugs Not a smoker. Doesn't drink. No illicit drugs Not a smoker. Doesn't drink. No illicit drugs Not a smoker. Doesn't drink. No illicit drugs Problems Problem Type SNOMED Code ICD Code Onset Dates Problem Status W/U Status Risk Notes Problem Type II diabetes mellitus without complication (207652411) Type 2 diabetes mellitus without complications (E11.9) Active confirmed Problem Essential hypertension (51633010) Essential hypertension (I10) Active confirmed Problem Hyperthyroidism (39310347) Hyperthyroidism (E05.90) Active confirmed Problem Plantar wart of left foot (71616410018612661) Plantar wart of left foot (B07.0) Active confirmed Problem Pain in limb (81537520) Foot pain, left (M79.672) Active confirmed Problem Chronic pain (51052224) Other chronic pain (G89.29) Active confirmed Problem Breast cancer screening (794052487) Breast cancer screening (Z12.39) Active confirmed Problem Iron deficiency anemia (50026265) Other iron deficiency anemia (D50.8) Active confirmed Problem Gastroesophageal reflux disease (359934296) Gastroesophageal reflux disease, esophagitis presence not specified (K21.9) Active confirmed Problem Chronic fatigue syndrome (63182302) Chronic fatigue (R53.82) Active confirmed Problem Hyperlipidaemia (92617169) Hyperlipidemia, unspecified hyperlipidemia type (E78.5) Active confirmed Problem Anemia (071623541) Anemia, unspecified type (D64.9) Active confirmed Problem Long-term current use of insulin (171489048) half-way current use of insulin (Z79.4) Active confirmed Problem History of cerebrovascular accident without residual deficits (364406739) History of CVA (cerebrovascular accident) (Z86.73) Active confirmed Problem Atopic dermatitis (87523304) Atopic dermatitis, unspecified type (L20.9) Active confirmed Problem Midline cystocele (314286474) Bladder prolapse, female, acquired (N81.10) Active confirmed Problem Hearing loss (67840678) Bilateral hearing loss, unspecified hearing loss type (H91.93) Active confirmed Problem Thyroid function tests abnormal (697757171) Thyroid function test abnormal (R94.6) Active confirmed Problem Chronic kidney disease stage 3B (disorder) (486868343) Stage 3b chronic kidney disease (N18.32) Active confirmed Problem Blood chemistry abnormal (272740397) Elevated serum free T4 level (R79.89) Active confirmed Problem History of stapedectomy (Z90.09) Active confirmed Vital Signs Heart Rate 88 /min 07/30/2024 pt is refusing to be weighed Temperature 97.9 degrees Fahrenheit 07/30/2024 pt i s refusing to be weighed Respiratory Rate 20 /min 07/30/2024 pt is refus ing to be weighed Blood pressure diastolic 123 mm Hg 07/30/2024 pt is refusing to be weighed Oximetry 98 % 07/30/2024 pt is refusing to be weighed Height 62.5 in 07/30/2024 pt is refusing to be weighed Blood pressure systolic 170 mm Hg 07/30/2024 pt i s refusing to be weighed Weight 121.0 lbs 06/20/2024 BMI 21.78 kg/m2 06/20/2024 Encounters Encounter Location Date Provider Diagnosis [facility] [address] [place] [address] 07/30/2024 Gerard Brasher [facility] [address] [place] [address] 07/30/2024 Gerard Brasher Other chronic pain G89.29 and Closed nondisplaced fracture of right clavicle, unspecified part of clavicle, initial encounter S42.001A [facility] [address] [place] [address] 06/20/2024 Gerard Brasher Medicare annual wellness visit, subsequent Z00.00 ; Type 2 diabetes mellitus without complications E11.9 ; HTN (hypertension) I10 ; Diabetes mellitus type II, controlled E11.9 ; History of CVA (cerebrovascular accident) Z86.73 ; Essential hypertension I10 and Hyperlipidemia, unspecified hyperlipidemia type E78.5 Assessments Encounter Date Diagnosis (ICD Code) Assessment Notes Treatment Notes Treatment Clinical Notes Section Notes 07/30/2024 Other chronic pain (ICD-10 - G89.29) 07/30/2024 Closed nondisplaced fracture of right clavicle, unspecified part of clavicle, initial encounter (ICD-10 - S42.001A) Patient with pain associated recent fracture. She is asking about other counter options that she does not want to take any opioid medications for this. Patient also has been using lidocaine patches and asking for refill on this. Will defer further management to Dr. Simon. We did discuss would obtain CT scan records from [facility] to get further comment on the mass that was identified during her ER visit as the CT report is not available with the ER discharge report. 06/20/2024 Type 2 diabetes mellitus without complications (ICD-10 - E11.9) - Continue current medication regimen - Continue with diabetic diet - F/u in 3 months 06/20/2024 Medicare annual wellness visit, subsequent (ICD-10 - Z00.00) No deficit observed on Medicare wellness exam. Will plan to repeat next year. 06/20/2024 HTN (hypertension) (ICD-10 - I10) BP controlled for age on current regimen, and patient is currently tolerating meds well. We will continue current therapy. Discussed exercise, salt intake, weight as other means of BP control. 06/20/2024 Diabetes mellitus type II, controlled (ICD-10 - E11.9) 06/20/2024 History of CVA (cerebrovascular accident) (ICD-10 - Z86.73) 06/20/2024 Essential hypertension (ICD-10 - I10) 06/20/2024 Hyperlipidemia, unspecified hyperlipidemia type (ICD-10 - E78.5) 06/20/2024 Other Body Mass Index : Care Instructions material was published, Body Mass Index: Care Instructions material was printed 07/30/2024 Other Body Mass Index : Care Instructions material was published, Body Mass Index: Care Instructions material was printed Plan Of Treatment Pending Test Test Name Order Date MicroAlb Creat Ratio,U 06/20/2024 Comprehensive Metabolic Panel 06/20/2024 Lipid Panel 06/20/2024 Complete Blood Count Auto Diff Next Appt Details Provider Name:Gerard Sanders ez, 12/22/2024 10:00:00 AM, [address] [place], [address], Insurance Providers Payer Name Payer Address Payer Phone Subscriber Number Group Number Insured Name Patient Relationship to Insured Coverage Start Date Coverage End Date [employer] D[employer]IG[employer] LE [address] [place] [address] [id number] [facility] 0 CHRISTINA BERGER Self - patient is the insured 0 B MEDICAID SEC TO [employer] ADV [address] [place] [address] [id number] CHRISTINA BERGER Self - patient is the insured 0 MEDICARE CGS [address] [place] [address] [id number] CHRISTINA BERGER Self - patient is the insured 0 Medical (General) History Medical History History ICD Code LEVEL 3 diabetes mellitus Cholesterol stroke hypertension PYELONEPHRITIS/ UTI Screening for colon cancer Z12.11 Hematuria R31.9 Nausea & vomiting R11.2 Vaginal dryness, menopausal N95.1 Urinary tract infection, site unspecifie d N39.0 Osteoporosis without current pathological fracture, unspecified osteoporosis type M81.0 HTN (hypertension) I10 Other specified hearing loss of both ear s H91.8X3 Hyperlipidemia E78.5 Bilateral impacted cerumen H61.23 Diabetes E11.9 Type 2 diabetes mellitus wit h complication, unspecified usp insulin use status E11.8 Uncontrolled diabetes mellitus E11.65 Type 2 diabetes mellitus with other diab etic kidney complication E11.29 Other iron deficiency anemia D50.8 Essential (primary) hypertension I10 porokaratosis of the left foot Surgical History Surgery Date(Month/Year) ear implants in both ears hysterectomy 1983 appendectomy 1975 skin graft of stomach to hand childhood LASER EYE SURGER X4 01/2019 Laser eye surgery x4 2020 Hospitalization History Reason Date(Month/Year) stroke june 09, 2013
--- NOTE | 2024-10-09 06:32 | ED.WOUNDLAC1 ---
HPI - Wound/Laceration General Chief Complaint: Wound/Laceration Stated Complaint: UPPER EXTREMITY INJURY- CAT SCRATCH Time Seen by Provider: 10/09/24 06:16 Source: patient Mode of arrival: walk-in History of Present Illness HPI narrative: This 69-year-old female who is left-hand dominant after having a stroke in the past presents for evaluation of a cat scratch/cat bite injury. The patient states that she was petting her daughter's cat last night around 10:30 PM and it scratched her. She also has what appears to be a puncture wound on the dorsal surface of her hand that she had not considered being a bite. She states it happened around 10:30 PM but she has pain and swelling out of proportion to the injury. She has not had any fever. She has no lymphangitic streaking. She does not know the date of her last tetanus shot. She has 4 scratches on the left thenar eminence and a small puncture wound over the third metacarpal. Related Data Home Medications ?Medication ?Instructions ?Recorded ?Confirmed amlodipine 5 mg tablet mg 10/09/24 famotidine 20 mg tablet mg 10/09/24 Allergies Allergy/AdvReac Type Severity Reaction Status Date / Time sulfamethoxazole (From Allergy Intermediate Rash Verified 10/09/24 06:20 Bactrim) trimethoprim (From Bactrim) Allergy Intermediate Rash Verified 10/09/24 06:20 codeine Allergy Mild Rash Verified 10/09/24 06:20 Review of Systems ROS Status of ROS 10 or more systems reviewed and unremarkable except as noted in history and below PFSH PFSH Social History Little interest or pleasure in doing things: not at all Feeling down, depressed, or hopeless: not at all Exam Narrative Exam Narrative: Vital signs and Nursing Notes reviewed: Patient is afebrile, mildly tachycardic with a pulse of 102, she has a mild elevation in her blood pressure at 139/79 she is not hypoxic with pulse ox of 98% on room air General: Awake, alert, oriented, no acute distress, lying comfortably on the stretcher HEENT: Normocephalic atraumatic, mucous membranes are moist and pink, eyes are clear, normal conjunctiva, vision is grossly intact Chest: Lungs are clear to auscultation with good air entry, there is no wheezing rhonchi or rales appreciated no accessory muscle use, patient is speaking in complete sentences-no chest wall tenderness to palpation CVS: Regular rate and rhythm S1-S2, no murmurs rubs or gallops, pulses are brisk and equal bilaterally Extremities: There is 4 superficial abrasion/scratches on the patient's left thenar eminence. Overlying the third metacarpal on the dorsal aspect of the patient's left hand is a small puncture wound with local swelling and bruising. There is no lymphangitic streaking. There is no swelling of the fingers. Patient is able to make a fist. Skin: Scratches and puncture wound to the left hand as described above Neuro: No focal deficits Constitutional Vital Signs, click to edit/add: Last Vital Signs Temp 98.6 F 10/09/24 06:13 Pulse 102 H 10/09/24 06:13 BP 139/79 10/09/24 06:13 Pulse Ox 98 10/09/24 06:13 O2 Del Method Room Air 10/09/24 06:13 Course Vital Signs Vital signs: Vital Signs Temperature 98.6 F 10/09/24 06:13 Pulse Rate 102 H 10/09/24 06:13 Blood Pressure 139/79 10/09/24 06:13 Pulse Oximetry 98 10/09/24 06:13 Oxygen Delivery Method Room Air 10/09/24 06:13 Temperature 98.6 F 10/09/24 06:13 Pulse Rate 102 H 10/09/24 06:13 Blood Pressure 139/79 10/09/24 06:13 Pulse Oximetry 98 10/09/24 06:13 Oxygen Delivery Method Room Air 10/09/24 06:13 MDM - Wound/Laceration MDM Narrative Medical decision making narrative: This 69-year-old female who was formerly [id number] but had a stroke leaving her left hand dominant presents for evaluation of an injury to her left hand that occurred around 10:30 PM last night when her daughters cat scratched her and possibly bit her. She sustained 4 superficial abrasions to the thenar evidence of the left hand and what appears to be a puncture wound to the third metacarpal. There is some mild local swelling and bruising and tenderness. There is no drainage appreciated. She has no neurovascular compromise. She states that she washed her hands with soap and water and applied Neosporin topically to the area. Upon awakening this morning she had increasing pain and swelling which she feels is out of proportion to the injury so she presents to the emergency department for evaluation. She does appear to have a puncture wound and several scratches as described above. There is no lymphangitic streaking or other notable abnormality. She has not had any fever. She declined an x-ray stating she has had so many x-rays in the past and did not wish to have an x-ray performed for this injury. Her tetanus was updated. Her left hand was soaked in warm water and Hibiclens and she was given a dose of Augmentin. She was encouraged to continue soaking her hand in warm soapy water or Epsom salt water and will be discharged home with a prescription for Augmentin to use over the course of the next 10 days. Anticipatory guidance was given to her at the time of discharge including returning to the emergency department for lymphangitic streaking, fevers, increasing swelling, foul-smelling drainage or any concerns. Discharge Plan Discharge Chief Complaint: Wound/Laceration Clinical Impression: Cat bite of hand, Cat scratch of hand Patient Disposition: Home, Self-Care Time of Disposition Decision: 06:38 Condition: Good Prescriptions / Home Meds: No Action amlodipine 5 mg tablet famotidine 20 mg tablet Print Language: [place] Instructions: Animal Bite (ED), Abrasion (ED) Additional Instructions: Soak your hand in warm Epsom salt water or soapy water several times a day for 15 to 20 minutes. Use antibiotics as directed. Avoid topical antibiotic ointment. Return to the emergency department for fever, increasing swelling or pain, red streaks up your arm indicating more severe infection or any concerns. Referrals: Physician,Non-Staff, MD [Primary Care Provider] - 1 week
[2024-10-09] MEDS: AMOXICILLIN/POT CLAV 875-125 MG TABLET 1 TAB PO (06:41)
[2024-10-09] MEDS: DIPHTH,PERTUSS(ACELL),TET VAC 0.5 ML SYRINGE IM (06:41)
== END 2024-10-09 06:52 | disposition home or self-care (01) ==
PROVIDERS: Emergency Provider Emergency Medicine
DX: S61.432A Puncture wound without foreign body of left hand, initial encounter (principal); S60.512A Abrasion of left hand, initial encounter; W55.01XA Bitten by cat, initial encounter; W55.03XA Scratched by cat, initial encounter; I69.30 Unspecified sequelae of cerebral infarction; Z23 Encounter for immunization
CPT/HCPCS: 90471; 90715; 99284